=== PATIENT | female | born 1980 | race Two or more races ===

== ENCOUNTER 2024-12-30 20:00 | Emergency (ER) | payer OTHER, SELFPAY ==
[2024-12-30 20:01] VITALS: BMI 30.2
--- NOTE | 2024-12-30 20:08 | EKG_ITS ---
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1980 Requested By: Uche Quinonez Order Number: [id number] Reading MD: Uche Quinonez Measurements Intervals [place] Rate: 93 P: 59 SC: 126 QRS: -50 QRSD: 73 T: 85 QT: 348 QTc: 433 Interpretive Statements SINUS RHYTHM POSSIBLE LEFT ATRIAL ENLARGEMENT [-0.1mV P-WAVE IN V1/V2] LEFT AXIS DEVIATION [QRS AXIS < -30] LOW QRS VOLTAGE IN PRECORDIAL LEADS [QRS DEFLECTION < 1.0 mV IN CHEST LEADS] POSSIBLE RIGHT VENTRICULAR CONDUCTION DELAY [RSR (QR) IN V1/V2] POSSIBLE ANTERIOR MYOCARDIAL INFARCTION , PROBABLY OLD [30 ms Q WAVE IN V3/V4, OR R < 0.2 mV IN V4] Compared to ECG 05/21/2021 14:04:10 Left-axis deviation now present Myocardial infarct finding now present /store/S0/[id number]
[2024-12-30 20:12] VITALS: BP 92/64; PULSE 95; RESP 20; TEMP 36.7; O2SAT 100
[2024-12-30] MEDS: NAPROXEN 250 MG TABLET 500 MG PO (20:39)
--- NOTE | 2024-12-30 20:41 | EDNOTE_ITS ---
Upper Respiratory Inf. RME/HPI General Chief Complaint: Syncope / Near Syncope Stated Complaint: NEAR SYNCOPE/ FEVERS Time Seen by Provider: 12/30/24 20:31 Arrival date/time: 12/30/24 20:00 44F with history of HTN presents to ED with several days of cough, fevers/chills, and generalized weakness including near-syncope today. Patient also wants work note because she's about to fired from work due to call-outs. Limitations: no limitations Related Data Home Medications ?Medication ?Instructions ?Recorded ?Confirmed diphenhydramine HCl 25 mg capsule 25 mg PO HS #0 caps 07/20/17 05/22/21 omeprazole 20 mg capsule,delayed 20 mg PO QDAY ##0 12/0505/22/21 release lisinopril 20 mg tablet 20 mg PO QDAY 05/22/2105/22 Previous Rx's ?Medication ?Instructions ?Recorded ibuprofen 800 mg tablet 800 mg PO TID PRN pain #30 t abs 04/18/20 meloxicam 7.5 mg tablet 7.5 mg PO QDAY #10 tabs 05/0 01/06 albuterol sulfate 90 mcg/actuation 2 puff inhalation Q 6H PRN 10/27/21 aerosol inhaler (Ventolin HFA) bronchospasm #6.7 grams azithromycin 250 mg tablet See Rx Instructions PO .COM PLEX #6 10/27/21 tabs prednisone 20 mg tablet 40 mg (2 x 20 mg) PO QDAY #1 0 tabs 10/27/21 promethazine-DM 6.25 mg-15 mg/5 mL 5 ml PO Q6H #240 mL 10/27/21 oral syrup Allergies Allergy/AdvReac Type Severity Reaction Status Date / Time Penicillins Allergy Mild RASH Verified 12/30/24 20:03 Review of Systems Review of Systems Systems Reviewed: All systems reviewed, normal except as documented Constitutional Constitutional: Reports system reviewed and no additional complaints, except as documented, Reports as per HPI, Reports chills, Reports fever(s), Denies headache(s) and Reports weakness ENT Ears, Nose, Mouth, and Throat: Denies disequilibrium and Denies headache(s) Cardiovascular Cardiovascular: Reports system reviewed and no additional complaints, except as documented, Denies chest pain, Denies dyspnea and Reports syncope (near) Respiratory Respiratory: Reports system reviewed and no additional complaints, except as documented, Reports as per HPI, Reports cough and Denies dyspnea Gastrointestinal Gastrointestinal: Reports system reviewed and no additional complaints, except as documented, Denies abdominal pain, Denies nausea and Denies vomiting Neurologic Neurologic: Reports system reviewed and no additional complaints, except as documented, Reports as per HPI, Denies confusion, Denies disequilibrium, Denies headache(s), Reports syncope (near) and Reports weakness Psychiatric Psychiatric: Denies confusion Past Medical History Past Medical History NEUROLOGIC: Negative Neurological Disorders or Seizures CARDIAC: Positive Cardiac Disorders and Hypertension (TAKES MED); Negative Congestive Heart Failure, Edema, Cellulitis or Varicose Veins RESPIRATORY: Negative Chronic Obstructive Pulmonary Disease (COPD), Asthma, Tuberculosis, Pulmonary Embolism or Sleep Apnea GASTROINTESTINAL: Positive Gastrointestinal Disorders, Hemorrhoids (NO SURG) and Gastroesophageal Reflux Disease (TAKES MED); Negative Hepatitis GENITOURINARY: Negative Genitourinary Disorders or Renal Disease REPRODUCTIVE: Positive Previous Pregnancies (X11) MUSCULOSKELETAL: Negative Musculoskeletal Disorders ENDOCRINE: Positive Endocrine Disorders; Negative Diabetes Mellitus Type 1 or Diabetes Mellitus Type 2 HEMATOLOGIC: Negative Blood Disorders or Sickle Cell Disease OTHER HISTORY: Positive Blood Transfusions and Chicken Pox; Negative Hospitalization, Autoimmune Disease, Shingles, Falls, Blood Transfusion Reaction, Anesthesia Reactions, Chemotherapy, Radiation Therapy, MRSA, Measles, Mumps or Cancer Family History FAMILY HISTORY: Positive Family Psychiatric Problems (MOTHER (DEPRESSION,ANXIETY), Family Cardiac Disorders (MOTHER (HTN)) and Family Surgery (MOTHER); Negative Family Respiratory Disorders, Family Gastrointestinal Problems, Family Cancer or Family Anesthesia Reaction Surgical History SURGICAL: Positive Tubal Ligation; Negative Pacemaker Social History SMOKING STATUS: Never smoker SECOND HAND EXPOSURE: No ED Exam General Limitations: Present no limitations General appearance: Present alert and in no apparent distress Head Head exam: Present atraumatic Eye Eye exam: Present normal appearance, PERRL and EOMI ENT ENT exam: Present normal exam, normal oropharynx and mucous membranes moist Neck Neck exam: Present normal inspection, full ROM and trachea midline Chest Chest inspection: Present normal inspection and symmetric chest wall rise Respiratory Respiratory exam: Present normal lung sounds bilaterally Cardiovascular Cardiovascular exam: Present regular rate, normal rhythm and normal heart sounds Abdominal Exam Abdominal exam: Present soft and normal bowel sounds Extremities Exam Extremities exam: Present normal inspection and full ROM Back Exam Back exam: Present normal inspection and full ROM Neurological Exam Neurological exam: Present alert, oriented X3 and CN II-XII intact Psychiatric Psychiatric exam: Present normal affect and normal mood Skin Skin exam: Present warm, dry, intact and normal color Course Quality Measures none Orders Category Date Time Status Bedside Influenza A&B Antigen Test NOW Care 12/30/24 20:08 Completed EKG (ED ONLY) *Do not use* NOW Care 12/30/24 20:08 Completed EKG (ED Only) Stat Exams 12/30/24 20:08 Draft Naproxen [Naprosyn] Med 12/30/24 20:32 Discontinued 500 mg PO X1 ONE Vital Signs Vital signs: Vital Signs Temperature 98.1 F 12/30/24 20:12 Pulse Rate 95 12/30/24 20:12 Respiratory Rate 20 12/30/24 20:12 Blood Pressure 92/64 12/30/24 20:12 Pulse Oximetry (%) 100 12/30/24 20:12 Oxygen Delivery Method Room Air 12/30/24 20:12 O2 at 100% on RA and WNLs Upper Respiratory Infection MDM Narrative MDM Narrative:: 44F with history of HTN presents to ED with several days of cough, fevers/chills, and generalized weakness including near-syncope today. Patient also wants work note because she's about to fired from work due to call-outs. Physical exam reveals normal pupil response and EOM. Nasal congestion, but clear lungs. Patient is afebrile, calm, and alert. EKG is NSR. Flu A+. Patient data External records reviewed:: [facility] previous records Clinical information provided by:: patient Social determinants that could affect healthcare access:: none Patient has the following chronic illnesses:: HTN How is presenting disease/condition affected by chronic disease/condition?: uneffected by Evaluation data The following diagnostics were reviewed and interpreted by me:: lab results and EKG tracing(s) Lab and/or radiology exams considered but not ordered:: ordered Interpretation Summary: above Medications / Prescriptions Medications or Prescriptions considered but not ordered:: ordered Medication administrations:: Medication Administration History Discontinued Medications Naproxen (Naproxen 250 Mg Tablet) 500 mg PO X1 ONE Stop: 12/30/24 20:33 Last Admin: 12/30/24 20:39 Dose: 500 mg Documented By: OA above Consultations Consultation(s) initiated? (list below): No Diagnosis Upper Respiratory Differential Diagnosis: upper respiratory infection, croup, otitis media, sinusitis, viral infection, bronchitis, influenza and pharyngitis Most likely diagnosis given after review of the tests above:: flu A Admission Indicated Admission indicated?: not indicated Admission Request Was there a request for admission?: No Disposition Plan Disposition Plan: Discharge Discharge Attestation Discharge Attestation: The patient and all family members were given an opportunity to ask questions and understood the discharge instructions. Discharge instructions specifically effects, indications for sooner follow up or return to the emergency department, and the expected course of current diagnosis. Patient condition: Stable Discharge Plan Plan Patient Disposition: HOME (Self Care) Disposition Comment: Stable Prescriptions/Referrals Prescriptions/Med Rec: No Action diphenhydramine HCl 25 MG capsule 25 mg PO HS Qty: 0 omeprazole 20 MG capsule,delayed release(DR/EC) 20 mg PO QDAY Qty: 0 ibuprofen 800 mg tablet 800 mg PO TID PRN (Reason: pain) Qty: 30 0RF lisinopril 20 mg Tablet 20 mg PO QDAY albuterol sulfate [Ventolin HFA] 90 mcg/actuation HFA aerosol inhaler 2 puff inhalation Q6H PRN (Reason: bronchospasm) Qty: 6.7 0RF promethazine-DM 6.25-15 mg/5 mL syrup 5 ml PO Q6H Qty: 240 0RF azithromycin 250 mg tablet See Rx Instructions .ROUTE .COMPLEX Qty: 6 0RF Rx Instructions: take 500 mg today (day 1), then 250 mg for 4 days (days 2-5) prednisone 20 mg tablet 40 mg PO QDAY Qty: 10 0RF meloxicam 7.5 mg tablet 7.5 mg PO QDAY Qty: 10 0RF Problem List Clinical Impression: Influenza A Patient/Caregiver Discharge Instructions Education Materials: ED Influenza (Adult) Additional Instructions: Please follow-up with PCP within 24-48 hours and return immediately if symptoms worsen. Ibuprofen/Tylenol can be used simultaneously for greater fever/pain control. Benadryl is good for cough, congestion, and sleep. Print Language: German Stand Alone Forms: Work/School Release PA/COMMUNICATION EQUIPMENT REPAIRER Supervising Physician PA/COMMUNICATION EQUIPMENT REPAIRER Supervising Physician: Dr. Olivia
== END 2024-12-30 20:55 | disposition home or self-care (01) ==
LOC: SERX 20:49
PROVIDERS: Emergency Provider Emergency Medicine
DX: J10.1 Influenza due to other identified influenza virus with other respiratory manifestations (principal); R94.31 Abnormal electrocardiogram [ECG] [EKG]; I10 Essential (primary) hypertension
CPT/HCPCS: 87400; 93005; 99283; A9270

== ENCOUNTER 2025-06-08 11:58 | Emergency (ER) | payer OTHER, SELFPAY ==
[2025-06-08 11:58] VITALS: BMI 30.2
--- NOTE | 2025-06-08 12:03 | EKG_ITS ---
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
[2025-06-08 12:13] VITALS: BP 138/87; PULSE 80; RESP 20; TEMP 36.5; O2SAT 100; BMI 29.4
--- NOTE | 2025-06-08 12:27 | XR_ITS ---
Examination: CT abdomen and pelvis without contrast. Coronal 3-D reconstructions. Sagittal 2-D reconstructions. Date and time of exam:June 08, 2025 1451 hours, comparison April 18, 2020 INDICATIONS: Mid abdominal pain beginning 3 days ago, hysterectomy history CTDI: vol (mGy): 7.36 DLP: (mGycm): 400 Technique: Axial images of the abdomen have been obtained, 3 mm slice thickness Intravenous contrast material has not been administered. Low dose protocols were performed. One or more of the following dose reduction techniques were used; automated exposure control, adjustment of the mA and/or KV according to patient size, use of iterative reconstruction technique. Findings: No focal liver or splenic lesions Cholelithiasis, negative for cholecystitis No pancreatic or adrenal mass 1 mm lower pole right renal calculus, coronal image 85, no hydronephrosis or ureteral calculi Aorta normal size Normal appendix No bowel obstruction Absent uterus No current adnexal mass No bladder mass or bladder calculi Moderate osteopenia IMPRESSION: Cholelithiasis, negative for cholecystitis 1 mm lower pole right renal calculus, coronal image 85, no hydronephrosis or ureteral calculi Normal appendix No pelvic mass No bladder mass or bladder calculi
--- NOTE | 2025-06-08 12:27 | XR_ITS ---
Examination: Abdomen sonogram, Limited Date and time of exam: June 08, 2025 1302 hours INDICATIONS: Upper abdominal pain today Technique: Real-time joshi scale transabdominal sonographic images of the upper abdomen obtained. Findings: 14 mm gallstone Normal gallbladder wall Normal common bile duct 0.3 cm Pancreatic head 2.9 cm Liver 13.5 cm fatty infiltration no focal liver lesions Normal hepatopedal portal venous flow Patent IVC IMPRESSION: Cholelithiasis, negative for cholecystitis
--- NOTE | 2025-06-08 12:27 | PD.EDRME ---
Rapid Medical Screening Exam RME Arrival date/time: 06/08/25 11:58 45-year-old female presents to the emergency department today for complaint of abdominal pain Chief Complaint: Abdominal Pain Vital signs: Vital Signs Temperature 97.7 F 06/08/25 12:13 Pulse Rate 80 06/08/25 12:13 Respiratory Rate 20 06/08/25 12:13 Blood Pressure 138/87 H 06/08/25 12:13 Pulse Oximetry (%) 100 06/08/25 12:13 Oxygen Delivery Method Room Air 06/08/25 12:13
[2025-06-08] MEDS: ONDANSETRON ODT 4 MG TABRAP PO (12:43)
[2025-06-08] MEDS: KETOROLAC INJ 30 MG/ML VIAL IM (12:44)
[2025-06-08 13:08] LABS: Basophils # (Auto) 0.0 Thou/mm3 (0.0-0.2); Basophils % (Auto) 0 % (0-2.5); Eosinophils # (Auto) 0.3 Thou/mm3 (0.0-0.5); Eosinophils % (Auto) 2 % (0-10); Hematocrit 41.2 % (36.0-46.0); Hemoglobin 13.8 g/dL (12.0-16.0); Immature Granulocytes Auto 0.04 Thou/mm3 (0.00-0.00); Lymphocytes # (Auto) 1.4 Thou/mm3 (1.0-4.8); Lymphocytes % (Auto) 13 % (10-50); Mean Corpuscular HGB Conc 33.5 g/dl (31.0-37.0); Mean Corpuscular Hemoglobin 28.7 pg (25.0-35.0); Mean Corpuscular Volume 86 fL (80-100); Monocytes # (Auto) 0.5 Thou/mm3 (0.0-0.8); Monocytes % (Auto) 4 % (0-12); Neutrophils # (Auto) 8.7 Thou/mm3 (1.8-7.7); Neutrophils % (Auto) 80 % (37-80); Nucleated Red Blood Cell # 0.00 Thou/mm3 (0.00-0.00); Nucleated Red Blood Cell % 0 /100 WBC (0); Platelet Count 270 Thou/mm3 (140-440); RDW Standard Deviation 39.0 fL (36.4-46.3); Red Blood Count 4.81 Miln/mm3 (4.00-5.20); White Blood Count 10.9 Thou/mm3 (3.6-11.0)
[2025-06-08 13:26] LABS: Alanine Aminotransferase 24 U/L (10-49); Albumin, Serum 4.4 gm/dL (3.5-5.0); Albumin/Globulin Ratio 1.8 (1.2-2.2); Alkaline Phosphatase 63 U/L (46-116); Anion Gap 9 (7-16); Aspartate Amino Transferase 25 U/L (0-34); BUN/Creatinine Ratio 15 Ratio (12-20); Bilirubin,Total 0.4 mg/dL (0.3-1.2); Blood Urea Nitrogen 12 mg/dL (9-23); Calcium 9.8 mg/dL (8.3-10.6); Calcium (Corrected) 9.8 mg/dL (8.5-10.1); Carbon Dioxide 26.0 mMol/L (20.0-31.0); Chloride 105 mMol/L (98-107); Creatinine (Component) 0.8 mg/dL (0.6-1.3); Estimated Creatinine Clearance 81.3 mL/min (>60); Globulin 2.5 gm/dL (2.3-3.5); Glucose 132 mg/dL (74-106); Lipase 27 U/L (12-53); Osmolality,Calculated 281 (275-295); Potassium 4.1 mMol/L (3.4-5.1); Sodium 140 mMol/L (136-145); Total Protein 6.9 gm/dL (5.7-8.2); eGFR > 60 See Note
--- NOTE | 2025-06-08 15:50 | EDNOTE_ITS ---
ED Abdominal Pain RME/HPI General Chief Complaint: Abdominal Pain Stated complaint: UPPER ABD PAIN AND FEELS LIKE SOMETHING STUCK Time seen by provider: 06/08/25 12:47 Arrival date/time: 06/08/25 11:58 Limitations: no limitations RME / HPI RME / HPI narrative: 06/08/25 11:58 45-year-old female presents to the emergency department today for complaint of abdominal pain DR. HERRERA MAIN ED EVALUATION: 45-year-old female with past medical history of hypertension and GERD presents to the Emergency Department with abdominal pain. She denies any other associated symptoms at this time. Family history is significant for psychiatric disorders (mother with depression and anxiety), cardiac disorders (mother with hypertension), and a history of surgery (mother). Surgical history is notable for a prior tubal ligation. Related Data Home Medications ?Medication ?Instructions ?Recorded ?Confirmed diphenhydramine HCl 25 mg capsule 25 mg PO HS #0 caps 07/20/17 05/22/21 omeprazole 20 mg capsule,delayed 20 mg PO QDAY ##0 12/0505/22/21 release lisinopril 20 mg tablet 20 mg PO QDAY 05/22/2105/22 Previous Rx's ?Medication ?Instructions ?Recorded ibuprofen 800 mg tablet 800 mg PO TID PRN pain #30 t abs 04/18/20 meloxicam 7.5 mg tablet 7.5 mg PO QDAY #10 tabs 050 01/06 albuterol sulfate 90 mcg/actuation 2 puff inhalation Q 6H PRN 10/27/21 aerosol inhaler (Ventolin HFA) bronchospasm #6.7 grams azithromycin 250 mg tablet See Rx Instructions PO .COM PLEX #6 10/27/21 tabs prednisone 20 mg tablet 40 mg (2 x 20 mg) PO QDAY #1 0 tabs 10/27/21 promethazine-DM 6.25 mg-15 mg/5 mL 5 ml PO Q6H #240 mL 10/27/21 oral syrup Allergies Allergy/AdvReac Type Severity Reaction Status Date / Time Penicillins Allergy Mild RASH Verified 06/08/25 12:01 Review of Systems Review of Systems Systems Reviewed: All systems reviewed, normal except as documented Past Medical History Past Medical History CARDIAC: Positive Cardiac Disorders and Hypertension (TAKES MED) GASTROINTESTINAL: Positive Gastrointestinal Disorders, Hemorrhoids (NO SURG) and Gastroesophageal Reflux Disease (TAKES MED) REPRODUCTIVE: Positive Previous Pregnancies (X11) ENDOCRINE: Positive Endocrine Disorders OTHER HISTORY: Positive Blood Transfusions and Chicken Pox Family History FAMILY HISTORY: Positive Family Psychiatric Problems (MOTHER (DEPRESSION,ANXIETY), Family Cardiac Disorders (MOTHER (HTN)) and Family Surgery (MOTHER) Surgical History SURGICAL: Positive Tubal Ligation Social History SMOKING STATUS: Current some day smoker SECOND HAND EXPOSURE: No ED Exam General Limitations: Present no limitations General appearance: Present alert and in no apparent distress Head Head exam: Present atraumatic Eye Eye exam: Present normal appearance, PERRL and EOMI ENT ENT exam: Present normal exam, normal oropharynx and mucous membranes moist Neck Neck exam: Present normal inspection, full ROM and trachea midline Chest Chest inspection: Present normal inspection and symmetric chest wall rise Respiratory Respiratory exam: Present normal lung sounds bilaterally Cardiovascular Cardiovascular exam: Present regular rate, normal rhythm and normal heart sounds Abdominal Exam Abdominal exam: Present soft and normal bowel sounds Extremities Exam Extremities exam: Present normal inspection and full ROM Back Exam Back exam: Present normal inspection and full ROM Neurological Exam Neurological exam: Present alert, oriented X3 and CN II-XII intact Psychiatric Psychiatric exam: Present normal affect and normal mood Skin Skin exam: Present warm, dry, intact and normal color Course Quality Measures none Orders Category Date Time Status EKG (ED ONLY) *Do not use* NOW Care 06/08/25 12:[address] abdomen pelvis wo con Stat Exams 06/08/25 12:27 Completed EKG (ED Only) Stat Exams 06/08/25 12:03 Draft US gall bladder Stat Exams 06/08/25 12:27 Completed CBC Stat Lab 06/08/25 12:58 Completed Comprehensive Metabolic Panel Stat Lab 06/08/25 12:58 Completed Lipase Stat Lab 06/08/25 12:58 Completed UA, C/S IF [Urinalysis, C/S if Indicated] Stat Lab 06/08/25 17:06 Completed Urine Culture Stat Lab 06/08/25 17:06 Received Ketorolac Inj [Toradol Inj] Med 06/08/25 12:31 Discontinued 30 mg IM X1 ONE Ondansetron Odt [Zofran Odt] Med 06/08/25 12:27 Discontinued 4 mg PO X1 ONE Vital Signs Vital signs: Vital Signs Temperature 97.7 F 06/08/25 12:13 Pulse Rate 80 06/08/25 12:13 Respiratory Rate 20 06/08/25 12:13 Blood Pressure 138/87 H 06/08/25 12:13 Pulse Oximetry (%) 100 06/08/25 12:13 Oxygen Delivery Method Room Air 06/08/25 12:13 Abdominal Pain [facility] Narrative [facility] Narrative:: I, Johnna [facility], am scribing for and in the presence of Dr. Herrera. Patient is a 45-year-old female present emerged part with abdominal pain. Was evaluated by prior provider that ordered labs and CT. Vital signs and exam as listed. Labs without any leukocytosis, no left shift, no other acute hematologic abnormalities, no acute metabolic disturbances, no transaminitis. Imaging with evidence of cholelithiasis, no evidence of cholecystitis. Patient has a 1 mm lower pole right renal calculus no hydronephrosis no ureteral calculi . On reevaluation patient hemodynamically stable, not distressed, symptoms well- controlled. Will discharge home close return precautions follow-up with primary care doctor. Also recommend that she sees a surgeon for management of her gallstones. Urine is turbid, nitrite negative, leuk esterase positive, 4 RBCs, 2 WBCs, 1+ bacteria 5 squames. Patient does not have any dysuria. Will send for culture. If positive will be called back for antibiotics. Will discharge home close return precautions follow-up with her primary care doctor as well as recommendation that she sees a surgeon for management of her symptomatic cholelithiasis. Patient data External records reviewed:: [facility] previous records Clinical information provided by:: patient Social determinants that could affect healthcare access:: none Patient has the following chronic illnesses:: Hypertension and GERD. Family history is significant for psychiatric disorders (mother with depression and anxiety), cardiac disorders (mother with hypertension), and a history of surgery (mother). Surgical history is notable for a prior tubal ligation. How is presenting disease/condition affected by chronic disease/condition?: caused by Evaluation data The following diagnostics were reviewed and interpreted by me:: lab results, radiology exam(s) and EKG tracing(s) (My interpretation: EKG performed at 1217 hours, sinus rhythm, rate 70, normal intervals, non specific ST-T wave changes, no cardiac alert) Lab and/or radiology exams considered but not ordered:: None Interpretation Summary: See [facility] RADIOLOGY Procedure(s): US gall bladder Accession Number(s): [id number] cc: Lianna YU),Demian VGEA; Tru Zimmer MD; NO PRIMARY/FAMILY,PHYSICIAN~ Examination: Abdomen sonogram, Limited Date and time of exam: June 08, 2025 1302 hours INDICATIONS: Upper abdominal pain today Technique: Real-time joshi scale transabdominal sonographic images of the upper abdomen obtained. Findings: 14 mm gallstone Normal gallbladder wall Normal common bile duct 0.3 cm Pancreatic head 2.9 cm Liver 13.5 cm fatty infiltration no focal liver lesions Normal hepatopedal portal venous flow Patent IVC IMPRESSION: Cholelithiasis, negative for cholecystitis Dictated By: Tru Zimmer MD Procedure(s): CT abdomen pelvis wo con Accession Number(s): [id number] cc: Lianna (SILVIA),Demian VEGA; Tru Zimmer MD; NO PRIMARY/FAMILY,PHYSICIAN~ Examination: CT abdomen and pelvis without contrast. Coronal 3-D reconstructions. Sagittal 2-D reconstructions. Date and time of exam:June 08, 2025 1451 hours, comparison April 18, 2020 INDICATIONS: Mid abdominal pain beginning 3 days ago, hysterectomy history CTDI: vol (mGy): 7.36 DLP: (mGycm): 400 Technique: Axial images of the abdomen have been obtained, 3 mm slice thickness Intravenous contrast material has not been administered. Low dose protocols were performed. One or more of the following dose reduction techniques were used; automated exposure control, adjustment of the mA and/or KV according to patient size, use of iterative reconstruction technique. Findings: No focal liver or splenic lesions Cholelithiasis, negative for cholecystitis No pancreatic or adrenal mass 1 mm lower pole right renal calculus, coronal image 85, no hydronephrosis or ureteral calculi Aorta normal size Normal appendix No bowel obstruction Absent uterus No current adnexal mass No bladder mass or bladder calculi Moderate osteopenia IMPRESSION: Cholelithiasis, negative for cholecystitis 1 mm lower pole right renal calculus, coronal image 85, no hydronephrosis or ureteral calculi Normal appendix No pelvic mass No bladder mass or bladder calculi Dictated By: Tru Zimmer MD Medications / Prescriptions Medications or Prescriptions considered but not ordered:: None Medication administrations:: Medication Administration History Discontinued Medications Ketorolac Tromethamine (Ketorolac Inj 30 Mg/Ml Vial) 30 mg IM X1 ONE Stop: 06/08/25 12:32 Last Admin: 06/08/25 12:44 Dose: 30 mg Documented By: JANIE Ondansetron HCl (Ondansetron Odt 4 Mg Tabrap) 4 mg PO X1 ONE; Protocol Stop: 06/08/25 12:28 Last Admin: 06/08/25 12:43 Dose: 4 mg Documented By: JANIE see above Consultations Consultation(s) initiated? (list below): No Diagnosis Differential diagnosis abdominal pain: abdominal pain, acute appendicitis, calculus of kidney, diverticulitis and other (Gastroenteritis, gastritis or peptic ulcer disease, and cholelithiasis.) Most likely diagnosis given after review of the tests above:: Cholelithiasis Kidney stone Admission Indicated Admission indicated?: not indicated Admission Request Was there a request for admission?: No Disposition Plan Disposition Plan: Discharge Discharge Attestation Discharge Attestation: The patient and all family members were given an opportunity to ask questions and understood the discharge instructions. Discharge instructions specifically effects, indications for sooner follow up or return to the emergency department, and the expected course of current diagnosis. Patient condition: Stable Discharge Plan Plan Patient Disposition: HOME (Self Care) Prescriptions/Referrals Prescriptions/Med Rec: No Action diphenhydramine HCl 25 MG capsule 25 mg PO HS Qty: 0 omeprazole 20 MG capsule,delayed release(DR/EC) 20 mg PO QDAY Qty: 0 ibuprofen 800 mg tablet 800 mg PO TID PRN (Reason: pain) Qty: 30 0RF lisinopril 20 mg Tablet 20 mg PO QDAY albuterol sulfate [Ventolin HFA] 90 mcg/actuation HFA aerosol inhaler 2 puff inhalation Q6H PRN (Reason: bronchospasm) Qty: 6.7 0RF promethazine-DM 6.25-15 mg/5 mL syrup 5 ml PO Q6H Qty: 240 0RF azithromycin 250 mg tablet See Rx Instructions .ROUTE .COMPLEX Qty: 6 0RF Rx Instructions: take 500 mg today (day 1), then 250 mg for 4 days (days 2-5) prednisone 20 mg tablet 40 mg PO QDAY Qty: 10 0RF meloxicam 7.5 mg tablet 7.5 mg PO QDAY Qty: 10 0RF Referrals: No Primary/Family,Physician [Primary Care Provider] - In 1 week Problem List Clinical Impression: Cholelithiasis, Kidney stone Patient/Caregiver Discharge Instructions Education Materials: ED Gallstones with Biliary Colic Additional Instructions: Please follow-up with your primary care doctor and request evaluation by a surgeon given your gallstones and abdominal pain. You also have a 1 mm kidney stone that is not causing any obstruction or kidney dysfunction. It is important that you follow-up with a urologist for further evaluation and stable hydrated. Print Language: Lithuanian Stand Alone Forms: Abby Award Info., Patient Portal Info Letter
[2025-06-08 17:21] LABS: Collection Type, Urine Clean Catch
[2025-06-08 17:45] LABS: Bacteria,Urine 1+; Bilirubin,Urine Negative (Negative); Blood,Urine Negative (Negative); Clarity,Urine Turbid (Clear/Hazy); Color,Urine Yellow (Lt Yel-Yel); Glucose, Urine 3+ (Negative); Ketones,Urine Negative (Negative); Leukocyte Esterase,Urine Positive (Negative); Nitrite,Urine Negative (Negative); PH,Urine 6.0 (5.0-7.0); Protein,Urine Trace (Neg - Trace); RBC,Urine 4 /hpf (0-3); Specific Gravity,Urine 1.035 (1.001-1.035); Squamous Epithelial Cell,Urine 5 /hpf (0-5); Urobilinogen,Urine Negative mg/dL (0.0-1.0); WBC,Urine 2 /hpf (0-5)
[2025-06-08 17:48] LABS: Culture Indicated,Urine Yes
--- NOTE | 2025-06-08 19:41 | PC.NURSE ---
PT WAS CALLED [phone], [phone], [phone]
== END 2025-06-08 19:42 | disposition left against medical advice (07) ==
PROVIDERS: Nurse Practitioner Primary Care; Emergency Provider Emergency Medicine
DX: N20.0 Calculus of kidney (principal); K80.20 Calculus of gallbladder without cholecystitis without obstruction; I10 Essential (primary) hypertension; K21.9 Gastro-esophageal reflux disease without esophagitis; Z53.29 Procedure and treatment not carried out because of patient's decision for other reasons; Z98.51 Tubal ligation status; Z79.899 Other long term (current) drug therapy; Z79.52 Long term (current) use of systemic steroids; Z88.0 Allergy status to penicillin
CPT/HCPCS: 36415; 74176; 76705; 80053; 81001; 81025; 83690; 85025; 87086; 93005; 99283; J1885; Q0162

== ENCOUNTER 2025-06-22 15:16 | Outpatient (AMB) | payer OTHER, MEDICAID, SELFPAY ==
--- NOTE | 2025-06-22 15:23 | GSCOFFNT_ITS ---
Vital Signs - [facility] 06/22/25 15:28 Height 1.57 m Height Method Measured Weight 71.696 kg Weight Measurement Method Standing Scale BMI 29.0 BP 133/88 H Blood Pressure Source Automatic Cuff Blood Pressure Location Left Upper Arm Position Sitting Respiration 18 Pulse 111 H Pulse Source Monitor Temp 97.8 F Temp Source Temporal Artery Scan Pulse Oximetry (%) 97 Oxygen Delivery Method Room Air Med/Allergies Allergies & Medications Allergies Penicillins Allergy (Mild, Verified 06/22/25 15:31) RASH Medication Reconciliation diphenhydramine HCl 25 mg capsule 25 mg PO HS #0 caps 07/20/17 [History Confirmed 06/22/25] omeprazole 20 mg capsule,delayed release 20 mg PO QDAY ##0 07/20/17 [History Confirmed 06/22/25] ibuprofen 800 mg tablet 800 mg PO TID PRN pain #30 tabs 04/18/20 [Rx Confirmed 06/22/25] meloxicam 7.5 mg tablet 7.5 mg PO QDAY #10 tabs 02/18/21 [Rx Confirmed 06/22/25] lisinopril 20 mg tablet 20 mg PO QDAY 05/22/21 [History Confirmed 06/22/25] albuterol sulfate 90 mcg/actuation aerosol inhaler (Ventolin HFA) 2 puff inhalation Q6H PRN bronchospasm #6.7 grams 10/27/21 [Rx Confirmed 06/22/25] azithromycin 250 mg tablet See Rx Instructions PO .COMPLEX #6 tabs 10/27/21 [Rx Confirmed 06/22/25] prednisone 20 mg tablet 40 mg (2 x 20 mg) PO QDAY #10 tabs 10/27/21 [Rx Confirmed 06/22/25] promethazine-DM 6.25 mg-15 mg/5 mL oral syrup 5 ml PO Q6H #240 mL 10/27/21 [Rx Confirmed 06/22/25] MA Intake Visit Data Collection New Patient or Established: Established Patient (seen at [facility] within 3 years) Seen by Clinical Staff ONLY (RN/RUBEN): No Reason for Visit:: GALLSTONES REFERRAL Pain Present Currently: No 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 PCP or OBGYN visit in last 3 months: Yes Hx Now: No Do You Feel Safe at Home: Yes Authorities Contacted: N/A Smoking Status Smoking Status: Never smoker Are you interested in quitting?: No Would you like additional Smoking Cessation Counseling?: No Immunization / Flu Flu Vaccine in the Last 12 Months: No Flu Vaccine Exclusion Criteria: No Exclusion Criteria Past Medical History Past Medical History NEUROLOGIC: Negative Neurological Disorders or Seizures CARDIAC: Positive Cardiac Disorders and Hypertension (TAKES MED); Negative Congestive Heart Failure, Edema, Cellulitis or Varicose Veins RESPIRATORY: Negative Chronic Obstructive Pulmonary Disease (COPD), Asthma, Tuberculosis, Pulmonary Embolism or Sleep Apnea GASTROINTESTINAL: Positive Gastrointestinal Disorders, Hemorrhoids (NO SURG) and Gastroesophageal Reflux Disease (TAKES MED); Negative Hepatitis GENITOURINARY: Negative Genitourinary Disorders or Renal Disease REPRODUCTIVE: Positive Previous Pregnancies (X11) ENDOCRINE: Positive Endocrine Disorders; Negative Diabetes Mellitus Type 1 or Diabetes Mellitus Type 2 HEMATOLOGIC: Negative Blood Disorders or Sickle Cell Disease OTHER HISTORY: Positive Blood Transfusions and Chicken Pox; Negative Hospitalization, Autoimmune Disease, Shingles, Falls, Blood Transfusion Reaction, Anesthesia Reactions, Chemotherapy, Radiation Therapy, MRSA, Measles, Mumps or Cancer Family History FAMILY HISTORY: Positive Family Psychiatric Problems (MOTHER (DEPRESSION,ANXIETY), Family Cardiac Disorders (MOTHER (HTN)) and Family Surgery (MOTHER); Negative Family Respiratory Disorders, Family Gastrointestinal Problems, Family Cancer or Family Anesthesia Reaction Surgical History SURGICAL: Positive Tubal Ligation; Negative Pacemaker Social History SMOKING STATUS: Smoking status: Never smoker SECOND HAND EXPOSURE: second hand exposure: No ALCOHOL: Alcohol Intake: Former ALCOHOL FREQUENCY: Alcohol Intake Frequency: holidays/special occasions only HOUSING: Housing: Apartment LIVES WITH: Lives With: Family HPI HPI Narrative 45F referred for symptomatic cholelithiasis. Pt reports she first had pain a few months ago but for the last few weeks it has been more constant. Pt is severe in the RUQ and worse after eating, associated with nausea but no fever or diarrhea. Due to severity of pain pt went to ER 06/08 with findings of 14mm gallstone, no signs of cholecystitis at the time PMH: HTN, asthma PSHx: Hysterectomy Meds: includes lisinopril, no antiplt or anticoagulation Allergies: PCN (rash) Social hx: Nonsmoker ROS Review of Systems Systems Reviewed: All systems reviewed, normal except as documented Objective/Exam General General Appearance: alert, cooperative and well groomed Resp Respiratory exam: Absent respiratory distress Abdominal Abdominal exam: Present soft; Absent distention, tenderness or Cross's sign Results US, CT reviewed Assessment & Plan Diagnosis / Problem List (1) Symptomatic cholelithiasis: Status: Acute Assessment & Plan: 45F with HTN, asthma presenting with signs and symptoms of symptomatic cholelithiasis. I explained that surgery is recommended due to the likelihood of ongoing pain and I enumerated benefits/risks including need for conversion to open, bleeding, infection, injury to nearby structures requiring further procedures which could include biliary reconstruction at a tertiary hospital, as well as postoperative diarrhea and hernia. All questions were answered and pt is agreeable to proceeding Office Procedures GNS Level of Care Nursing/Assessment Patient Status: Established Patient Nursing Assessment/Reassesment: Medication Reconciliation, Update PMH in EMR and Vital Signs Coordination of Care: Complex Care and Chronic Disease 1-5, Consent,records obtained, informed consent, Education Simp Pt/Fam, Results/Orders obtained and Staff clarify orders Established Patient Charge Established Patient Point Assignment: 90 Established Patient Point Charge: EP Level 3 (80-115) Patient Portal Questionaires Social History Living Situation History Housing: Apartment Housing Other:: Lives independently with family members Tobacco History Smoking Status: Never smoker Packs per Day: 10 Second Hand Smoke Exposure: No Alcohol History Alcohol Intake: Former Alcohol Intake Frequency: holidays/special occasions only Alcohol Intake Frequency Other:: 6 Domestic Abuse History Do You Feel Safe at Home: Yes Review of Systems Report any current symptoms Only answer those that you have currently: Past Medical History Past Medical History Have you ever been diagnosed with any of the following: Neurological Problems Seizures: No Cardiology Problems Congestive Heart Failure: No Edema: No Cellulitis: No Hypertension: Yes (TAKES MED) Varicose Veins: No Respiratory Problems Chronic Obstructive Pulmonary Disease (COPD): No Asthma: No Tuberculosis: No Pulmonary Embolism: No Sleep Apnea: No Stomache/Intestinal Problems Hepatitis: No Hemorrhoids: Yes (NO SURG) Gastroesophageal Reflux Disease: Yes (TAKES MED) Genital/Urinary Problems Renal Disease: No Reproductive Problems Previous Pregnancies: Yes (X11) Endocrine Problems Diabetes Mellitus Type 1: No Diabetes Mellitus Type 2: No Blood Problems Sickle Cell Disease: No Other Problems Hospitalization: No Autoimmune Disease: No Shingles: No Falls: No Blood Transfusions: Yes Blood Transfusion Reaction: No Anesthesia Reactions: No Chemotherapy: No Radiation Therapy: No MRSA: No Chicken Pox: Yes Measles: No Mumps: No Cancer: No Surgical History Pacemaker: No
[2025-06-22 15:28] VITALS: BP 133/88; PULSE 111; RESP 18; TEMP 36.6; O2SAT 97; BMI 29.0
== END 2025-06-22 16:08 | disposition home or self-care (01) ==
LOC: HODSRG 15:16
PROVIDERS: Supervising Provider Surgery; Visit Provider Surgery
DX: K80.20 Calculus of gallbladder without cholecystitis without obstruction (principal); I10 Essential (primary) hypertension; K21.9 Gastro-esophageal reflux disease without esophagitis
CPT/HCPCS: 99213; G0463

== ENCOUNTER 2025-07-10 02:41 | Emergency (ER) | payer MEDICAID, SELFPAY ==
--- NOTE | 2025-07-10 02:43 | PD.EDABDPN ---
ED Abdominal Pain RME/HPI General Chief Complaint: Abdominal Pain Stated complaint: UPPER MID ABD PAIN Time seen by provider: 07/10/25 03:03 Arrival date/time: 07/10/25 02:41 RME / HPI RME / HPI narrative: See MDM for Dr. Ferreira's HPI documentation. Related Data Home Medications ?Medication ?Instructions ?Recorded ?Confirmed diphenhydramine HCl 25 mg capsule 25 mg PO HS #0 caps 07/20/17 06/22/25 omeprazole 20 mg capsule,delayed 20 mg PO QDAY ##0 07/20/17 06/22/25 release lisinopril 20 mg tablet 20 mg PO QDAY 05/22/21 06/22/25 Previous Rx's ?Medication ?Instructions ?Recorded ibuprofen 800 mg tablet 800 mg PO TID PRN pain #30 tabs 04/18/20 meloxicam 7.5 mg tablet 7.5 mg PO QDAY #10 tabs 02/18/21 albuterol sulfate 90 mcg/actuation 2 puff inhalation Q6H PRN 10/27/21 aerosol inhaler (Ventolin HFA) bronchospasm #6.7 grams azithromycin 250 mg tablet See Rx Instructions PO .COMPLEX #6 10/27/21 tabs prednisone 20 mg tablet 40 mg (2 x 20 mg) PO QDAY #10 tabs 10/27/21 promethazine-DM 6.25 mg-15 mg/5 mL 5 ml PO Q6H #240 mL 10/27/21 oral syrup acetaminophen 300 mg-codeine 30 mg 2 tab PO Q8H PRN pain #20 tabs 07/10/25 tablet ondansetron 4 mg disintegrating 4 mg PO TID PRN nausea and 07/10/25 tablet vomiting 30 days #10 tabs Allergies Allergy/AdvReac Type Severity Reaction Status Date / Time Penicillins Allergy Mild RASH Verified 07/10/25 02:47 Review of Systems Review of Systems Systems Reviewed: All systems reviewed, normal except as documented Past Medical History Past Medical History NEUROLOGIC: Negative Neurological Disorders or Seizures CARDIAC: Positive Cardiac Disorders and Hypertension (TAKES MED); Negative Congestive Heart Failure, Edema, Cellulitis or Varicose Veins RESPIRATORY: Negative Chronic Obstructive Pulmonary Disease (COPD), Asthma, Tuberculosis, Pulmonary Embolism or Sleep Apnea GASTROINTESTINAL: Positive Gastrointestinal Disorders, Hemorrhoids (NO SURG) and Gastroesophageal Reflux Disease (TAKES MED); Negative Hepatitis GENITOURINARY: Negative Genitourinary Disorders or Renal Disease REPRODUCTIVE: Positive Previous Pregnancies (X11) MUSCULOSKELETAL: Negative Musculoskeletal Disorders ENDOCRINE: Positive Endocrine Disorders; Negative Diabetes Mellitus Type 1 or Diabetes Mellitus Type 2 HEMATOLOGIC: Negative Blood Disorders or Sickle Cell Disease OTHER HISTORY: Positive Blood Transfusions and Chicken Pox; Negative Hospitalization, Autoimmune Disease, Shingles, Falls, Blood Transfusion Reaction, Anesthesia Reactions, Chemotherapy, Radiation Therapy, MRSA, Measles, Mumps or Cancer Family History FAMILY HISTORY: Positive Family Psychiatric Problems (MOTHER (DEPRESSION,ANXIETY), Family Cardiac Disorders (MOTHER (HTN)) and Family Surgery (MOTHER); Negative Family Respiratory Disorders, Family Gastrointestinal Problems, Family Cancer or Family Anesthesia Reaction Surgical History SURGICAL: Positive Tubal Ligation; Negative Pacemaker Social History SMOKING STATUS: Never smoker SECOND HAND EXPOSURE: No ED Exam Narrative Physical exam: See [facility] for Dr. Ferreira's physical exam documentation. Course Quality Measures none Orders Category Date Time Status Saline [Insert IV] NOW Care 07/10/25 02:44 Active US gall bladder Stat Exams 07/10/25 02:45 Taken Alcohol, Blood Medical Stat Lab 07/10/25 02:10 Completed Amylase Stat Lab 07/10/25 02:10 Completed Bilirubin,Direct Stat Lab 07/10/25 02:10 Completed CBC Stat Lab 07/10/25 02:10 Completed CMP [Comprehensive Metabolic Panel] Stat Lab 07/10/25 02:10 Completed Drug Screen,Urine Stat Lab 07/10/25 02:46 Ordered HCG,Qualitative Serum Stat Lab 07/10/25 02:10 Completed Magnesium Stat Lab 07/10/25 02:10 Completed UA, C/S IF [Urinalysis, C/S if Indicated] Stat Lab 07/10/25 02:46 Ordered HYDROmorphone INJ [Dilaudid Inj] Med 07/10/25 02:44 Discontinued 2 mg IVP X1 ONE Ketorolac Inj [Toradol Inj] Med 07/10/25 02:44 Discontinued 30 mg IVP X1 ONE Magnesium Sulfate 2 GM Ivpb [Magnesium Sulfate Ivpb] Med 07/10/25 04:04 Active 2 gm in 50 ml IV X1 Metoclopramide Inj [Reglan Inj] Med 07/10/25 04:14 Discontinued 10 mg IVP X1 ONE Ondansetron Inj [Zofran Inj] Med 07/10/25 02:44 Discontinued 4 mg IVP X1 ONE Sodium Chloride 0.9% 1000 ml [Ns] 1,000 ml Med 07/10/25 02:44 Discontinued IV 999 mls/hr Sodium Chloride 0.9% 1000 ml [Ns] 1,000 ml Med 07/10/25 04:14 Active IV 999 mls/hr Vital Signs Vital signs: Vital Signs Temperature 97.9 F 07/10/25 02:52 Pulse Rate 82 07/10/25 02:52 Respiratory Rate 20 07/10/25 02:52 Blood Pressure 137/93 H 07/10/25 02:52 Pulse Oximetry (%) 98 07/10/25 02:52 Oxygen Delivery Method Room Air 07/10/25 02:52 Abdominal Pain MDM MDM Narrative MDM Narrative:: This section includes all my notes and documentations, including HPI, PE, and ED course. Jayden Ferreira MD HPI: 45yo female here with severe upper abdominal pain, nausea, and vomiting for the last several hours. Patient's pain woke her up from her sleep. Her pain feels similar to her previous episodes of gallbladder attacks. Had fried chicken for dinner. No other complaints reported. ROS: All negative except as documented in HPI. Physical Exam: General: Alert and oriented. In severe pain. Eyes: Conjunctivae and lids clear. ENT: No nasal congestion. Neck: Supple. Heart: RRR. Lungs: No respiratory distress. Good air movement. No rhonchi, wheezing, rales. Abdomen: Soft and severe upper abdominal tenderness. Normal bowel sounds. No distension. No rebound or guarding. Back: No CVA tenderness. Skin: Warm and dry. Neuro: Alert and oriented X 3. I reviewed all diagnostic test results. My review of the gallbladder US report is cholelithiasis. Blood tests remarkable for Mg 1.5. At this point, diagnoses include: Gallstones Hypomagnesemia Treatment here included: IV fluid Dilaudid 2 mg IV Zofran 4 mg IV Reglan 10 mg IV MgSO4 2 gram IV Significant improvement noted. Recommended outpatient management. Based on my best medical judgment, made decision no further evaluation or treatment indicated at this time. Patient understands and agrees to the discharge instructions customized and printed, see below. Discharge Instructions from Dr. Ferreira: 1. After evaluation, your symptoms are due to gallstone(s). You need gallbladder to help digest fatty foods. 2. So to prevent future attacks, avoid all fatty and oily and greasy and buttery and dairy foods. This usually means take out and fast food restaurants. 3. Zofran for nausea/vomiting. Tylenol with codeine for severe pain. Rest your stomach for 12 hours. Then clear liquid diet for 24 hours then advance diet slowly as tolerated. 4. Surgery to remove your gallbladder on 07/26/2025 as scheduled. 5. Seek immediate medical care with intolerable pain, fever, or with any concerns. Jayden Ferreira MD Patient data External records reviewed:: [facility] previous records (Per chart review, patient was seen here on 06/08/25 for cholelithiasis.) Clinical information provided by:: patient Social determinants that could affect healthcare access:: none Patient has the following chronic illnesses:: HTN How is presenting disease/condition affected by chronic disease/condition?: uneffected by Evaluation data The following diagnostics were reviewed and interpreted by me:: lab results and radiology exam(s) Lab and/or radiology exams considered but not ordered:: none Interpretation Summary: I reviewed all diagnostic test results. My review of the gallbladder US report is cholelithiasis. Blood tests remarkable for Mg 1.5. Medications / Prescriptions Medications or Prescriptions considered but not ordered:: none Medication administrations:: Medication Administration History Magnesium Sulfate (Magnesium Sulfate Ivpb) 2 gm in 50 mls @ 25 mls/hr IV X1 ONE Stop: 07/10/25 06:03 Last Admin: 07/10/25 04:32 Dose: 25 mls/hr Documented By: VIRIDIANA Sodium Chloride (Ns) 1,000 mls @ 999 mls/hr IV .Q1H1M ONE Stop: 07/10/25 05:14 Last Admin: 07/10/25 04:33 Dose: 999 mls/hr Documented By: VIRIDIANA Discontinued Medications Hydromorphone HCl (Hydromorphone Inj 2 Mg/Ml Vial) 2 mg IVP X1 ONE Stop: 07/10/25 02:45 Last Admin: 07/10/25 03:11 Dose: 2 mg Documented By: VIRIDIANA Sodium Chloride (Ns) 1,000 mls @ 999 mls/hr IV .Q1H1M ONE Stop: 07/10/25 03:44 Last Infusion: 07/10/25 04:16 Dose: Infused Documented By: Admin: 07/10/25 03:11 Dose: 999 mls/hr Documented By: VIRIDIANA Ketorolac Tromethamine (Ketorolac Inj 30 Mg/Ml Vial) 30 mg IVP X1 ONE Stop: 07/10/25 02:45 Last Admin: 07/10/25 04:31 Dose: 30 mg Documented By: VIRIDIANA Metoclopramide HCl (Metoclopramide Inj 5 Mg/Ml Vial 2 Ml) 10 mg IVP X1 ONE; Protocol Stop: 07/10/25 04:15 Last Admin: 07/10/25 04:31 Dose: 10 mg Documented By: VIRIDIANA Ondansetron HCl (Ondansetron Inj 2 Mg/Ml Inj 2 Ml) 4 mg IVP X1 ONE; Protocol Stop: 07/10/25 02:45 Last Admin: 07/10/25 03:10 Dose: 4 mg Documented By: VIRIDIANA Treatment here included: IV fluid Dilaudid 2 mg IV Zofran 4 mg IV Reglan 10 mg IV MgSO4 2 gram IV Consultations Consultation(s) initiated? (list below): No Diagnosis Differential diagnosis abdominal pain: acute appendicitis, calculus of kidney, constipation, diverticulitis, endometriosis, gastroenteritis, pancreatitis, small bowel obstruction and other (Biliary colic, GERD, gastritis, PUD) Most likely diagnosis given after review of the tests above:: Cholelithiasis Hypomagnesemia Admission Indicated Admission indicated?: not indicated Explain why admission is indicated or not indicated:: With significant improvement and no condition needing emergent intervention, there was no indication for admission. Admission Request Was there a request for admission?: No Disposition Plan Disposition Plan: Discharge Discharge Attestation Discharge Attestation: The patient and all family members were given an opportunity to ask questions and understood the discharge instructions. Discharge instructions specifically effects, indications for sooner follow up or return to the emergency department, and the expected course of current diagnosis. Patient condition: Stable Discharge Plan Plan Patient Disposition: HOME (Self Care) Prescriptions/Referrals Prescriptions/Med Rec: New acetaminophen-codeine 300-30 mg tablet 2 tab PO Q8H MDD 6 PRN (Reason: pain) Qty: 20 0RF ondansetron 4 mg tablet,disintegrating 4 mg PO TID PRN (Reason: nausea and vomiting) 30 Days Qty: 10 0RF No Action diphenhydramine HCl 25 MG capsule 25 mg PO HS Qty: 0 omeprazole 20 MG capsule,delayed release(DR/EC) 20 mg PO QDAY Qty: 0 ibuprofen 800 mg tablet 800 mg PO TID PRN (Reason: pain) Qty: 30 0RF lisinopril 20 mg Tablet 20 mg PO QDAY albuterol sulfate [Ventolin HFA] 90 mcg/actuation HFA aerosol inhaler 2 puff inhalation Q6H PRN (Reason: bronchospasm) Qty: 6.7 0RF promethazine-DM 6.25-15 mg/5 mL syrup 5 ml PO Q6H Qty: 240 0RF azithromycin 250 mg tablet See Rx Instructions .ROUTE .COMPLEX Qty: 6 0RF Rx Instructions: take 500 mg today (day 1), then 250 mg for 4 days (days 2-5) prednisone 20 mg tablet 40 mg PO QDAY Qty: 10 0RF meloxicam 7.5 mg tablet 7.5 mg PO QDAY Qty: 10 0RF Referrals: Jarrod Nguyen MD [Primary Care Provider, Family Practice] - In 1 week Problem List Clinical Impression: Gallstones Patient/Caregiver Discharge Instructions Discharge Activity: activity as tolerated Education Materials: ED Gallstones with Biliary Colic Additional Instructions: Discharge Instructions from Dr. Ferreira: 1. After evaluation, your symptoms are due to gallstone(s).? You need gallbladder to help digest fatty foods. 2. So to prevent future attacks, avoid all fatty and oily and greasy and buttery and dairy foods.? This usually means take out and fast food restaurants. 3. Zofran for nausea/vomiting.? Tylenol with codeine for severe pain.? Rest your stomach for 12 hours. Then clear liquid diet for 24 hours then advance diet slowly as tolerated. 4. Surgery to remove your gallbladder on 07/26/2025 as scheduled. 5. Seek immediate medical care with intolerable pain, fever, or with any concerns. Print Language: Ivorian Stand Alone Forms: [employer] Award Info., Patient Portal Info Letter
--- NOTE | 2025-07-10 02:45 | XR_ITS ---
Examination: Abdomen sonogram, Limited Date and time of exam: July 10, 2025, 0332 hrs. Indications: Epigastric pain radiating to the back beginning tonight Technique: Real-time joshi scale transabdominal sonographic images of the upper abdomen obtained. Findings: 15 mm gallstone Normal gallbladder wall Normal common bile duct 0.2 cm Pancreatic head 2.6 cm Liver 15.4 cm fatty infiltration no focal liver lesions Normal hepatopedal portal venous flow Patent IVC Impression: Cholelithiasis, negative for cholecystitis
[2025-07-10 02:51] VITALS: BMI 30.2
[2025-07-10 02:52] VITALS: BP 137/93; PULSE 82; RESP 20; TEMP 36.6; O2SAT 98
[2025-07-10] MEDS: ONDANSETRON INJ 2 MG/ML INJ 2 ML 4 MG IVP (03:10)
[2025-07-10] MEDS: SODIUM CHLORIDE 0.9% 1000 ML 1,000 ML 999 ML IV ×2 (03:11→04:33)
[2025-07-10] MEDS: HYDROmorphone INJ 2 MG/ML VIAL IVP (03:11)
[2025-07-10 03:24] VITALS: BP 141/99; PULSE 79; RESP 18; TEMP 36.6; O2SAT 99
[2025-07-10 03:27] LABS: Basophils # (Auto) 0.1 Thou/mm3 (0.0-0.2); Basophils % (Auto) 1 % (0-2.5); Eosinophils # (Auto) 0.5 Thou/mm3 (0.0-0.5); Eosinophils % (Auto) 6 % (0-10); Hematocrit 37.5 % (36.0-46.0); Hemoglobin 12.5 g/dL (12.0-16.0); Immature Granulocytes Auto 0.02 Thou/mm3 (0.00-0.00); Lymphocytes # (Auto) 4.0 Thou/mm3 (1.0-4.8); Lymphocytes % (Auto) 45 % (10-50); Mean Corpuscular HGB Conc 33.3 g/dl (31.0-37.0); Mean Corpuscular Hemoglobin 28.7 pg (25.0-35.0); Mean Corpuscular Volume 86 fL (80-100); Monocytes # (Auto) 0.6 Thou/mm3 (0.0-0.8); Monocytes % (Auto) 7 % (0-12); Neutrophils # (Auto) 3.6 Thou/mm3 (1.8-7.7); Neutrophils % (Auto) 41 % (37-80); Nucleated Red Blood Cell # 0.00 Thou/mm3 (0.00-0.00); Nucleated Red Blood Cell % 0 /100 WBC (0); Platelet Count 256 Thou/mm3 (140-440); RDW Standard Deviation 38.9 fL (36.4-46.3); Red Blood Count 4.35 Miln/mm3 (4.00-5.20); White Blood Count 8.9 Thou/mm3 (3.6-11.0)
[2025-07-10 03:35] LABS: HCG,Qualitative Serum Negative
[2025-07-10 03:54] LABS: Alanine Aminotransferase 19 U/L (10-49); Albumin, Serum 4.1 gm/dL (3.5-5.0); Albumin/Globulin Ratio 1.6 (1.2-2.2); Alcohol, Blood Medical < 3.0 mg/dL (0-10.0); Alkaline Phosphatase 69 U/L (46-116); Amylase 46 U/L (30-118); Anion Gap 9 (7-16); Aspartate Amino Transferase 10 U/L (0-34); BUN/Creatinine Ratio 18 Ratio (12-20); Bilirubin,Direct < 0.1 mg/dL (0.0-0.3); Bilirubin,Total 0.3 mg/dL (0.3-1.2); Blood Urea Nitrogen 16 mg/dL (9-23); Calcium 9.8 mg/dL (8.3-10.6); Calcium (Corrected) 9.8 mg/dL (8.5-10.1); Carbon Dioxide 25.3 mMol/L (20.0-31.0); Chloride 106 mMol/L (98-107); Creatinine (Component) 0.9 mg/dL (0.6-1.3); Estimated Creatinine Clearance 70.4 mL/min (>60); Globulin 2.6 gm/dL (2.3-3.5); Glucose 118 mg/dL (74-106); Magnesium 1.5 mg/dL (1.6-2.6); Osmolality,Calculated 281 (275-295); Potassium 4.0 mMol/L (3.4-5.1); Sodium 140 mMol/L (136-145); Total Protein 6.7 gm/dL (5.7-8.2); eGFR > 60 See Note
[2025-07-10] MEDS: METOCLOPRAMIDE INJ 5 MG/ML VIAL 2 ML 10 MG IVP (04:31)
[2025-07-10] MEDS: KETOROLAC INJ 30 MG/ML VIAL IVP (04:31)
[2025-07-10] MEDS: Magnesium Sulfate 2 GM Ivpb 2 GM/50 ML BAG IV (04:32)
--- NOTE | 2025-07-10 04:52 | PRELIM_ITS ---
Right upper quadrant abdominal ultrasound. July 10, 2025 0332 hours Clinical history: RUQ tenderness Technique: Grayscale and color flow images of the right upper quadrant are provided. Hepatic and portal veins were also imaged with color flow images. Findings: The liver is normal in echogenicity. No intrahepatic biliary ductal dilatation. The gallbladder is distended. There is a 1.1x0.6x1.5cm gallbladder calculus at the gallbladder neck, wall thickening or pericholecystic fluid is demonstrated. The main portal vein is patent and demonstrates hepatopetal flow.The common bile duct is normal in caliber at 2 mm. The pancreas is unremarkable to the extent visualized. The inferior vena cava is patent. Impression: Cholelithiasis with a nonmobile/impacted calculus at the gallbladder neck. While additional sonographic evidence of gallbladder wall thickening or pericholecystic fluid is not demonstrated at this time, in the appropriate clinical setting, acute cholecystitis cannot be entirely excluded. Suggest follow-up with HIDA scan, if clinically indicated. Report Electronically Signed By: Ammon Benítez 07/10/2025 4:51:40 AM [EST]
[2025-07-10 05:36] VITALS: BP 120/76; PULSE 78; RESP 16; TEMP 36.4; O2SAT 95
--- NOTE | 2025-07-10 07:13 | PC.NURSE ---
DR STOVER WITH DR FLOR AT BEDSIDE ATTEMPTED TO PLACE VAS CATH ON PATIENT. PT VASCATH WAS UNSUCCESSFUL. PT BECAME UNRESPONSIVE A FEW MINTUES WITHIN ATTEMPT. CODE LUCIEN WAS CALLED AT 0603. SEE CODE SHEETS FOR FURTHER DOCUMENTATION
== END 2025-07-10 07:29 | disposition home or self-care (01) ==
PROVIDERS: Emergency Provider Emergency Medicine; PCP Family Medicine
DX: K80.20 Calculus of gallbladder without cholecystitis without obstruction (principal); I10 Essential (primary) hypertension; Z88.0 Allergy status to penicillin
CPT/HCPCS: 36415; 76705; 80053; 80307; 80320; 81001; 82150; 82248; 83735; 84703; 85025; 96361; 96365; 96366; 96375; 99283; J1171; J1885; J2405; J2765; J3475; J7030; G0480

== ENCOUNTER 2025-07-26 06:15 | Day surgery (SDC) | payer MEDICAID, SELFPAY ==
[2025-07-20 07:22] VITALS: BMI 30.9
[2025-07-20 08:51] LABS: Basophils # (Auto) 0.1 Thou/mm3 (0.0-0.2); Basophils % (Auto) 1 % (0-2.5); Eosinophils # (Auto) 0.4 Thou/mm3 (0.0-0.5); Eosinophils % (Auto) 6 % (0-10); Hematocrit 37.6 % (36.0-46.0); Hemoglobin 12.3 g/dL (12.0-16.0); Immature Granulocytes Auto 0.01 Thou/mm3 (0.00-0.00); Lymphocytes # (Auto) 2.4 Thou/mm3 (1.0-4.8); Lymphocytes % (Auto) 33 % (10-50); Mean Corpuscular HGB Conc 32.7 g/dl (31.0-37.0); Mean Corpuscular Hemoglobin 28.5 pg (25.0-35.0); Mean Corpuscular Volume 87 fL (80-100); Monocytes # (Auto) 0.6 Thou/mm3 (0.0-0.8); Monocytes % (Auto) 8 % (0-12); Neutrophils # (Auto) 3.7 Thou/mm3 (1.8-7.7); Neutrophils % (Auto) 51 % (37-80); Nucleated Red Blood Cell # 0.00 Thou/mm3 (0.00-0.00); Nucleated Red Blood Cell % 0 /100 WBC (0); Platelet Count 283 Thou/mm3 (140-440); RDW Standard Deviation 40.7 fL (36.4-46.3); Red Blood Count 4.32 Miln/mm3 (4.00-5.20); White Blood Count 7.3 Thou/mm3 (3.6-11.0)
[2025-07-20 08:59] LABS: INR 0.9 (0.9-1.3); Partial Thromboplastin Time 24.4 Seconds (22.0-36.0); Prothrombin Time 10.0 Seconds (9.0-12.2)
[2025-07-20 09:24] LABS: Alanine Aminotransferase 25 U/L (10-49); Albumin, Serum 4.2 gm/dL (3.5-5.0); Albumin/Globulin Ratio 1.8 (1.2-2.2); Alkaline Phosphatase 58 U/L (46-116); Anion Gap 7 (7-16); Aspartate Amino Transferase 25 U/L (0-34); BUN/Creatinine Ratio 14 Ratio (12-20); Bilirubin,Total 0.3 mg/dL (0.3-1.2); Blood Urea Nitrogen 10 mg/dL (9-23); Calcium 9.4 mg/dL (8.3-10.6); Calcium (Corrected) 9.4 mg/dL (8.5-10.1); Carbon Dioxide 26.6 mMol/L (20.0-31.0); Chloride 108 mMol/L (98-107); Creatinine (Component) 0.7 mg/dL (0.6-1.3); Estimated Creatinine Clearance 95.3 mL/min (>60); Globulin 2.4 gm/dL (2.3-3.5); Glucose 115 mg/dL (74-106); Osmolality,Calculated 283 (275-295); Potassium 3.9 mMol/L (3.4-5.1); Sodium 142 mMol/L (136-145); Total Protein 6.6 gm/dL (5.7-8.2); eGFR > 60 See Note
[2025-07-26] VITALS (10 sets, daily range): BP systolic 103–151; BP diastolic 54–100; PULSE 74–88; RESP 16–22; TEMP 36.2–36.5; O2SAT 95–100; BMI 30.2
[2025-07-26] MEDS: RINGERS LACTATED 1000 ML 1,000 ML 20 ML IV (06:51)
--- NOTE | 2025-07-26 09:37 | ESOP_ITS ---
Date of Procedure 07/26/25 Pre Op Diagnosis Symptomatic cholelithiasis Post Op Diagnosis Sane Procedure Laparoscopic cholecystectomy Findings Gallbladder with stone Procedure Description After discussion of risks and benefits, patient was brought to the operating room, SCDs were placed and general anesthesia was induced. She received preo perative antibiotics and was prepped and draped in usual sterile fashion. After timeout a supraumbilical incision was made with a #11 blade and the skin was elevated with towel clamps. A Veress needle was placed through the incision and I attempted to confirm proper placement with a drop test however the fluid did not drop as expected. I then opted to make an incision at the left upper quadrant 2 fingerbreadths caudal to the costal margin. Again this was done with a #11 blade and skin was elevated with towel clamps. The same thing happened with this Veress needle so I opted to exchanged for a longer Veress needle at which point the drop test did show the needle was in the peritoneum. The abdomen was insufflated to 15 mmHg at which point the Veress needle was exchanged for a 5 mm camera using a Visiport technique. There were no signs of injury from the point of entry. 4 additional ports were placed under direct vision, one 5 mm at the supraumbilical region, one 12 mm epigastrium, one 5 mm right subcostal and one 5 mm right anterior axillary line. Patient was placed in reverse Trendelenburg. The fundus of the gallbladder was grasped and retracted cephalad and the infundibulum was grasped and retracted laterally. Using blunt dissection, the hepatocystic triangle was cleared of fatty and fibrous tissue. Using a combination of blunt dissection and electrocautery, the lower third of the gallbladder was removed from the gallbladder bed. There was a very small branching artery overlying the cystic duct and cystic artery, on the left side of the gallbladder and these branches were clipped and transected in the usual fashion. At that point the critical view of safety had clearly been achieved and the cystic duct and cystic artery were clipped and transected in the usual fashion. The gallbladder was removed from the gallbladder bed using electrocautery. Hemostasis of the gallbladder bed was achieved with electrocautery and reinforced with Surgicel powder. The specimen was removed in an Endo Catch bag via the epigastric port, and the epigastric fascia was closed with a 0 Vicryl suture using a Jacek-Loren. Pneumoperitoneum was released and ports were removed under direct vision. Incisions were irrigated and infiltrated with half percent Marcaine for a total of 30 cc. Incisions were closed with 4 Monocryl and reinforced with Dermabond. Patient was extubated and brought to PACU in stable condition Pathology / specimen Other (Gallbladder) Estimated Blood Loss 25 Surgeon Sherrie Vidal MD Surgical Staff Operation Date: 07/26/25 08:15 Case Staff Anesthesiologist: Aj Cabrera RN First Assistant: Katerine Lee
--- NOTE | 2025-07-26 09:42 | PD.SURDS ---
Planned Discharge Date 07/26/25 DS: Providers Provider Primary care physician: Bismark Sarabia PA-C Attending Provider on Admission: Sherrie Vidal MD Attending Provider on DC: Sherrie Vidal MD Discharging Provider: Sherrie Vidal MD Diagnosis Discharge Diagnosis (1) Symptomatic cholelithiasis: Status: Acute Problem List Completed Was Problem List Reviewed/Reconciled?: Yes Exam Vital Signs Temp Pulse Resp BP Pulse Ox 97.6 F 80 20 141/94 H 97 07/26/25 06:45 07/26/25 06:45 07/26/25 06:45 07/26/25 06:45 07/26/25 06:45 Discharge Plan Plan Patient Disposition: HOME (Self Care) Prescriptions/Referrals Prescriptions/Med Rec: New oxycodone-acetaminophen [Percocet] 5-325 mg tablet 1 tab PO Q4HR MDD 6 tabs PRN (Reason: pain) Qty: 10 0RF Rx Instructions: Take 1 tablet as needed every 4-6 hours for moderate to severe pain No Action omeprazole 20 MG capsule,delayed release(DR/EC) 20 mg PO QDAY Qty: 0 lisinopril 20 mg Tablet 20 mg PO QDAY pantoprazole 40 mg tablet,delayed release (DR/EC) 40 mg PO DAILY Patient Comments: TAKE 1 TABLET BY MOUTH EVERY DAY diphenhydramine HCl [Allergy (diphenhydramine)] 25 mg capsule 50 mg PO QAM Premarin 0.625 mg tablet 0.625 mg PO QDAY Rx Instructions: cyclically Referrals: Sherrie Vidal MD [Physician, General Surgery] Referral Note: You will receive a message to confirm a follow-up appt with me in 2 weeks Bismark Sarabia PA-C [Primary Care Provider] Patient/Caregiver Discharge Instructions Other Discharge Activity Instructions:: Avoid lifting objects greater than 10 pounds for 6 weeks you may resume showering in 2 days, on 07/28/25 At that point it is okay to get incisions wet, pat dry after Avoid bathing or swimming for 2 weeks Your incisions have skin glue on them which will fall off on its own and does not need to be replaced Your stitches will not need to be removed During the surgery we fill your abdomen with a air in order to see the structures. Some of this air tends to linger and cause pain that is referred to the shoulder as well as pain with deep breaths. This will get better with time. Being out of bed and walking will help the air to absorb faster You may take ibuprofen as needed in between doses of Percocet or instead of Percocet for mild to moderate pain You may also take Tylenol as needed, but please make sure not to exceed the maximum dose of 4000 mg of Tylenol in 24 hours If you develop worsening pain, nausea/vomiting, fever or signs of jaundice please seek care in ER Education Materials: After Gallbladder Surgery, Preventing Surgical Site Infections Print Language: Malay Stand Alone Forms: [employer] Info., Patient Portal Info Letter Discharge Order Discharge Orders: Discharge (Routine); Ordered 07/26/25 Ordered By: Sherrie Vidal Results Results: Laboratory Laboratory results: results reviewed Results: Imaging US - abdomen: report reviewed PROCEDURES: Procedure Date 07/26/25 Procedures Laparoscopic cholecystectomy
--- NOTE | 2025-07-26 09:47 | SUR.PHASEI ---
pt received from OR in recovery bay 5. pt asleep but responds to voice, breathing unlabored on oxymask 8l. v/s stable. pt dressing to abd x5 cdi. report received from Carol Moore and Dr. Cabrera.
[2025-07-26] MEDS: HYDROmorphone INJ 2 MG/ML VIAL 0.4 MG IVP ×2 (10:00→11:00)
[2025-07-26] MEDS: fentaNYL CIT INJ 50 mCg/ML AMP 2ML 25 MCG IVP ×3 (10:08→10:49)
[2025-07-26] MEDS: ONDANSETRON INJ 2 MG/ML INJ 2 ML 4 MG IVP (10:10)
[2025-07-26] MEDS: MORPHINE SULF INJ 4 MG/ML VIAL 3 MG IV (10:24)
--- NOTE | 2025-07-26 10:39 | SUR.PHASEII ---
pt able to tolerate oral fluids without difficulty swallowing or nausea/vomiting.
--- NOTE | 2025-07-26 11:38 | SUR.PHASEII ---
pt awake and alert, breathing unlabored on room air. v/s stable. pt dressing to abd x5 cdi. pt able to ambulate to wheelchair with steady gait. d/c instructions given with s/o Shakira in room, all questions answered. pt d/c via wheelchair with all belongings.
== END 2025-07-26 11:38 | disposition home or self-care (01) ==
PROVIDERS: Anesthesiology; PCP Physician Assistant; Referring Provider Surgery; Visit Provider Surgery
PROC: 0FT44ZZ Resection of Gallbladder, Percutaneous Endoscopic Approach (ICD-10-PCS; CPT 47562; principal; 2025-07-26 08:15)
DX: K80.10 Calculus of gallbladder with chronic cholecystitis without obstruction (principal); I10 Essential (primary) hypertension; J45.909 Unspecified asthma, uncomplicated
CPT/HCPCS: 47562; 36415; 80053; 85025; 85610; 85730; A4217; A4649; J0131; J0694; J1171; J1885; J2250; J2270; J2405; J2704; J3010; J3490; J7120; J1596

== ENCOUNTER 2025-08-10 10:01 | Outpatient (AMB) | payer MEDICAID, SELFPAY ==
[2025-08-10 10:13] VITALS: BP 109/77; PULSE 89; RESP 18; TEMP 36.2; O2SAT 97; BMI 29.5
--- NOTE | 2025-08-10 10:14 | PD.GSCLVISIT ---
Vital Signs - [facility] 08/10/25 10:13 08/10/25 10:16 Height 1.57 m Height Method Measured Weight 72.802 kg Weight Measurement Method Standing Scale BMI 29.5 BP 109/77 109/77 Blood Pressure Source Automatic Cuff Blood Pressure Location Left Upper Arm Position Sitting Respiration 18 18 Pulse 89 89 Pulse Source Monitor Temp 97.2 F 97.2 F Temp Source Temporal Artery Scan Pulse Oximetry (%) 97 97 Oxygen Delivery Method Room Air Med/Allergies Allergies & Medications Allergies Penicillins Allergy (Mild, Verified 08/10/25 10:15) RASH Medication Reconciliation omeprazole 20 mg capsule,delayed release 20 mg PO QDAY ##0 07/20/17 [History Confirmed 08/10/25] lisinopril 20 mg tablet 20 mg PO QDAY 05/22/21 [History Confirmed 08/10/25] conjugated estrogens 0.625 mg tablet (Premarin) 0.625 mg PO QDAY 07/20/25 [History Confirmed 08/10/25] diphenhydramine HCl 25 mg capsule (Allergy (diphenhydramine)) 50 mg PO QAM 07/20/25 [History Confirmed 08/10/25] pantoprazole 40 mg tablet,delayed release 40 mg PO DAILY 07/20/25 [History Confirmed 08/10/25] oxycodone-acetaminophen 5 mg-325 mg tablet (Percocet) 1 tab PO Q4HR PRN pain #10 tabs 07/26/25 [Rx Confirmed 08/10/25] MA Intake Visit Data Collection New Patient or Established: Established Patient (seen at [facility] within 3 years) Seen by Clinical Staff ONLY (RN/MA): No Reason for Visit:: LAP ANDERS F/U Pain Present Currently: No 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 PCP or OBGYN visit in last 3 months: Yes Hx Now: No Do You Feel Safe at Home: Yes Authorities Contacted: N/A Smoking Status Smoking Status: Never smoker Immunization / Flu Flu Vaccine in the Last 12 Months: Yes Flu Vaccine Exclusion Criteria: Already Received Past Medical History Past Medical History NEUROLOGIC: Negative Neurological Disorders or Seizures CARDIAC: Positive Cardiac Disorders and Hypertension; Negative Congestive Heart Failure, Edema, Cellulitis or Varicose Veins RESPIRATORY: Negative Chronic Obstructive Pulmonary Disease (COPD), Asthma, Tuberculosis, Pulmonary Embolism or Sleep Apnea GASTROINTESTINAL: Positive Gastrointestinal Disorders, Hemorrhoids and Gastroesophageal Reflux Disease; Negative Hepatitis GENITOURINARY: Positive Kidney Stones; Negative Genitourinary Disorders or Renal Disease REPRODUCTIVE: Positive Previous Pregnancies ENDOCRINE: Positive Endocrine Disorders; Negative Diabetes Mellitus Type 1 or Diabetes Mellitus Type 2 HEMATOLOGIC: Negative Blood Disorders or Sickle Cell Disease OTHER HISTORY: Positive Blood Transfusions and Chicken Pox; Negative Hospitalization, Autoimmune Disease, Shingles, Falls, Blood Transfusion Reaction, Anesthesia Reactions, Chemotherapy, Radiation Therapy, MRSA, Measles, Mumps or Cancer Family History FAMILY HISTORY: Positive Family Psychiatric Problems, Family Cardiac Disorders and Family Surgery; Negative Family Respiratory Disorders, Family Gastrointestinal Problems, Family Cancer or Family Anesthesia Reaction Surgical History SURGICAL: Positive Tubal Ligation; Negative Pacemaker Social History SMOKING STATUS: Smoking status: Never smoker SECOND HAND EXPOSURE: second hand exposure: No ALCOHOL: Alcohol Intake: Former ALCOHOL FREQUENCY: Alcohol Intake Frequency: holidays/special occasions only HOUSING: Housing: House LIVES WITH: Lives With: Family HPI HPI Narrative HISTORY OF PRESENT ILLNESS I, Sherrie Vidal, have obtained verbal consent from the patient, to be recorded during this encounter which may include, but not limited to, medical history, examination, treatment plans, and relevant health information.? Patient was informed that recording will be read and reviewed by myself before inclusion in the medical chart. The patient is a female who presents for a follow-up of cholecystectomy. She underwent a laparoscopic cholecystectomy 2 weeks ago and is currently experiencing discomfort at the site of her umbilical incision. She reports no drainage from the incision, only the presence of dried blood, which she has been cleaning with alcohol. The area around the incision is sensitive, causing irritation when in contact with clothing. She has been avoiding heavy lifting and strenuous activities, delegating these tasks to others. She rates her pain as 2 out of 10, escalating to 6 out of 10 at its worst. She reports no issues with urination or bowel movements, although she did experience loose stools yesterday and the day before, which she attributes to a change in diet. Her last bowel movement was yesterday, and she has not had one today. She is currently on Wegovy injections, which typically cause constipation, but this has not been an issue post-surgery. She experienced severe pain in the first few days following surgery, which was alleviated by Gas-X. She continues to feel bloated and is not taking any pain medication. She also reports pain and a pulling sensation when sneezing or coughing. ROS Review of Systems Systems Reviewed: All systems reviewed, normal except as documented Objective/Exam General General Appearance: alert, cooperative and well groomed Resp Respiratory exam: Absent respiratory distress Abdominal Abdominal exam: Present soft and incision (c/d/i, no erythema, no fluctuance); Absent distention or tenderness Results Pathology of gallbladder reviewed Assessment & Plan Diagnosis / Problem List (1) Symptomatic cholelithiasis: Status: Acute Assessment & Plan: 45F s/p lap anders 07/26, recovering well overall. I advised pt to avoid strenuous activity including lifting objects >10lbs for 6 weeks. All questions were answered and pt is encouraged to reach out as needed Office Procedures GNS Level of Care Nursing/Assessment Patient Status: Established Patient Nursing Assessment/Reassesment: Medication Reconciliation, Update PMH in EMR and Vital Signs Coordination of Care: Complex Care and Chronic Disease 1-5, Education Complex Pt/Fam, Consent,records obtained, informed consent, Results/Orders obtained and Staff clarify orders Established Patient Charge Established Patient Point Assignment: 95 Established Patient Point Charge: EP Level 3 (80-115) Patient Portal Questionaires Social History Living Situation History Housing: House Housing Other:: Lives independently with family members Tobacco History Smoking Status: Never smoker Packs per Day: 10 Second Hand Smoke Exposure: No Alcohol History Alcohol Intake: Former Alcohol Intake Frequency: holidays/special occasions only Alcohol Intake Frequency Other:: 6 Domestic Abuse History Do You Feel Safe at Home: Yes Review of Systems Report any current symptoms Only answer those that you have currently: Past Medical History Past Medical History Have you ever been diagnosed with any of the following: Neurological Problems Seizures: No Cardiology Problems Congestive Heart Failure: No Edema: No Cellulitis: No Hypertension: Yes Varicose Veins: No Respiratory Problems Chronic Obstructive Pulmonary Disease (COPD): No Asthma: No Tuberculosis: No Pulmonary Embolism: No Sleep Apnea: No Stomache/Intestinal Problems Hepatitis: No Hemorrhoids: Yes Gastroesophageal Reflux Disease: Yes Genital/Urinary Problems Renal Disease: No Kidney Stones: Yes Reproductive Problems Previous Pregnancies: Yes Endocrine Problems Diabetes Mellitus Type 1: No Diabetes Mellitus Type 2: No Blood Problems Sickle Cell Disease: No Other Problems Hospitalization: No Autoimmune Disease: No Shingles: No Falls: No Blood Transfusions: Yes Blood Transfusion Reaction: No Anesthesia Reactions: No Chemotherapy: No Radiation Therapy: No MRSA: No Chicken Pox: Yes Measles: No Mumps: No Cancer: No Surgical History Pacemaker: No
[2025-08-10 10:16] VITALS: BP 109/77; PULSE 89; RESP 18; TEMP 36.2; O2SAT 97
== END 2025-08-10 10:46 | disposition home or self-care (01) ==
PROVIDERS: PCP Family Medicine; Referring Provider Family Medicine; Supervising Provider Surgery; Visit Provider Surgery
DX: Z90.5 Acquired absence of kidney (principal); I10 Essential (primary) hypertension
CPT/HCPCS: 99213; G0463